=== PATIENT | female | born 1960 | race Caucasian/White ===

== ENCOUNTER 2016-11-04 14:05 | Inpatient (IN) | payer MEDICARE, MEDICAID ==
[~2016-11-04] VITALS: Ht 154.9 cm; Wt 117.5 kg
[~2016-11-04 14:05] MED LIST: 00186-0370-20 IH; ATROVENT I0.2 MG/1 M IH; CELEXA 20MG20 MG/TAB PO; CLARITIN 1010 MG/TAB PO; CLEOCIN HCL300 MG PO; DALIRESP500 MCG PO; DESYREL 100MG100 MG PO; FLONASE NASAL S16 GM NS; IMODIUM A-D2 MG PO; IPRATROPIUM BROM3 M1 IH; KLONOPIN 0.5MG0.5 MG PO; LASIX 20MG TABL20 MG PO; LEVAQUIN 750MG750 M1 PO; MOBIC15 MG PO; MUCINEX 60600 MG/TA1 PO; MUCUS RELIEF200 MG PO; NEURONTIN300 MG/CAP PO; OXYGEN; PERFOROMIS20 MCG/2 M IH; PREDNISONE1 MG PO; PREDNISONE10 MG PO; PREDNISONE20 MG PO; PRIL40 PO; PROMETHAZINE V473 M2 PO; PULMICORT R1 MG/2 ML IH; RT ADVAIR 228 DISKUS IH; TYLENOL 325MG325 MG PO; VENTOLIN0.09 MG IH; ZANTAC 150MG T150 MG PO; ZITHROMAX 250M250 MG PO; ZITHROMAX500 M2 PO
[2016-11-04 14:30] LABS: ARTERIAL BLD GAS TCO2 CT 33.2; ARTERIAL BLOOD GAS BASE EXCESS 5.7 (-2-2); ARTERIAL BLOOD GAS HCO3 31.6 meq/L (22-26); ARTERIAL BLOOD GAS PO2 74.3 mmHg (80-100); ARTERIAL BLOOD GAS PO2T 74.3 (80-100); OXYHEMOGLOBIN 93.2 %
[2016-11-04 14:31] LABS: ATS? YES
[2016-11-04 14:43] LABS: MEAN CELL VOLUME 97 fl (80.0-100.0); MEAN CORPUSCULAR HGB CONC 32 g/dl (33.0-37.0); MEAN PLATELET VOLUME 8.3 fl (7.4-10.4); PLATELET COUNT 227 K/mm3 (130-400); RED BLOOD COUNT 3.32 M/mm3 (4.10-5.30); REDCELL DISTRIBUTION WIDTH-CV 14.7 % (11.5-14.5); WHITE BLOOD COUNT 14.6 K/mm3 (4.8-10.8)
[2016-11-04 14:44] LABS: HEMATOCRIT 32.1 % (37.0-47.0); HEMOGLOBIN 10.2 g/dl (12.5-16.0); MEAN CORPUSCULAR HEMOGLOBIN 31 pg (27.0-31.0)
[2016-11-04 14:45] LABS: ADD PATHOLOGY DIFF REVIEW NO
[2016-11-04 14:58] LABS: BAND 49 % (0-10); NEUTROPHILS 31 % (42.0-75.2); PLATELET ESTIMATE NORMAL (NORMAL); TOTAL CELLS COUNTED 100
[2016-11-04 15:00] LABS: ADJUSTED CALCIUM 9.3 mg/dL (8.4-10.2); ALBUMIN 3.1 gm/dL (3.5-5.0); BILIRUBIN,TOTAL 0.8 mg/dL (0.0-1.0); CALCIUM 8.6 mg/dL (8.4-10.2); CREATININE, serum 0.86 mg/dL (0.52-1.25); POTASSIUM 3.8 mmol/L (3.4-5.0)
[2016-11-04 15:10] LABS: TROPONIN-I 0.086 ng/mL (0.000-0.034)
[2016-11-04 15:21] LABS: C-REACTIVE PROTEIN 16.5 mg/dL (0.0-0.9)
[2016-11-04] MEDS ORDERED: KLOR-CON M2020 MEQ PO (15:22)
[2016-11-04] MEDS ORDERED: SINGULAIR 110 MG/TAB PO (15:25)
[2016-11-04] MEDS ORDERED: ZITHROMAX 250M250 MG PO (15:26)
[2016-11-04 18:42] VITALS: BP 93/58; PULSE 116; TEMP 99.3
[2016-11-04 19:30] VITALS: BP 98/51; PULSE 110; TEMP 99.2
[2016-11-04 23:08] VITALS: BP 87/53; PULSE 93; TEMP 98
[2016-11-04 23:51] VITALS: BP 92/42; PULSE 92
[2016-11-05 03:02] VITALS: BP 97/50; PULSE 88; TEMP 97.8
[2016-11-05 07:24] LABS: MEAN CELL VOLUME 100 fl (80.0-100.0); MEAN CORPUSCULAR HGB CONC 31 g/dl (33.0-37.0); MEAN PLATELET VOLUME 8.8 fl (7.4-10.4); PLATELET COUNT 207 K/mm3 (130-400); RED BLOOD COUNT 2.99 M/mm3 (4.10-5.30); REDCELL DISTRIBUTION WIDTH-CV 14.5 % (11.5-14.5)
[2016-11-05 07:28] LABS: HEMATOCRIT 29.8 % (37.0-47.0); HEMOGLOBIN 9.2 g/dl (12.5-16.0); MEAN CORPUSCULAR HEMOGLOBIN 31 pg (27.0-31.0)
[2016-11-05 07:29] LABS: ADD PATHOLOGY DIFF REVIEW NO
[2016-11-05 07:33] LABS: CALCIUM 8.3 mg/dL (8.4-10.2); CREATININE, serum 0.77 mg/dL (0.52-1.25); POTASSIUM 3.9 mmol/L (3.4-5.0)
[2016-11-05 07:39] VITALS: BP 93/50; PULSE 89; TEMP 98
[2016-11-05 07:41] LABS: TROPONIN-I 0.017 ng/mL (0.000-0.034)
[2016-11-05 07:59] LABS: BAND 42 % (0-10); NEUTROPHILS 46 % (42.0-75.2); PLATELET ESTIMATE NORMAL (NORMAL); TOTAL CELLS COUNTED 100
[2016-11-05 13:18] VITALS: BP 107/44; PULSE 101; TEMP 98.3
[2016-11-05 17:24] VITALS: BP 114/48; PULSE 101; TEMP 98.1
[2016-11-05 19:32] VITALS: BP 116/50; PULSE 100; TEMP 98.8
[2016-11-05 23:42] VITALS: BP 113/50; PULSE 96; TEMP 97.9
[2016-11-06] VITALS (8 sets, daily range): BP systolic 104–125; BP diastolic 41–58; PULSE 89–101; TEMP 93.4–98.5
[2016-11-06 06:51] LABS: MEAN CELL VOLUME 97 fl (80.0-100.0); MEAN CORPUSCULAR HGB CONC 31 g/dl (33.0-37.0); MEAN PLATELET VOLUME 8.7 fl (7.4-10.4); PLATELET COUNT 226 K/mm3 (130-400); RED BLOOD COUNT 3.01 M/mm3 (4.10-5.30); REDCELL DISTRIBUTION WIDTH-CV 14.5 % (11.5-14.5); WHITE BLOOD COUNT 16.1 K/mm3 (4.8-10.8)
[2016-11-06 06:57] LABS: INR 1.2 (0.8-3.0); PROTHROMBIN TIME 13.3 SECONDS (9.7-12.8)
[2016-11-06 07:03] LABS: ADJUSTED CALCIUM 9.3 mg/dL (8.4-10.2); ALBUMIN 2.9 gm/dL (3.5-5.0); BILIRUBIN,TOTAL 0.5 mg/dL (0.0-1.0); CALCIUM 8.4 mg/dL (8.4-10.2); CREATININE, serum 0.77 mg/dL (0.52-1.25); MAGNESIUM 2.2 mg/dL (1.6-2.3); PHOSPHOROUS 3.1 mg/dL (2.5-4.5); POTASSIUM 3.6 mmol/L (3.4-5.0)
[2016-11-06 07:07] LABS: HEMATOCRIT 29.3 % (37.0-47.0); HEMOGLOBIN 9.2 g/dl (12.5-16.0); MEAN CORPUSCULAR HEMOGLOBIN 31 pg (27.0-31.0)
[2016-11-06 07:08] LABS: ADD PATHOLOGY DIFF REVIEW NO
[2016-11-06 07:32] LABS: C-REACTIVE PROTEIN 22.8 mg/dL (0.0-0.9)
[2016-11-06 07:40] LABS: BAND 37 % (0-10); METAMYELOCYTE 1 % (0-0); NEUTROPHILS 59 % (42.0-75.2); PLATELET ESTIMATE NORMAL (NORMAL); TOTAL CELLS COUNTED 100
[2016-11-06 09:30] LABS: ERYTHROCYTE SEDIMENTATION RATE 87 mm/hr (0-30)
[2016-11-06 15:18] LABS: BRONCH WASH FLUID MONONUCLEAR 14 % (0-75); BRONCH WASH POLY - PMN 66 % (0-25)
[2016-11-07 04:59] VITALS: BP 132/68; PULSE 95; TEMP 97.6
[2016-11-07 07:56] VITALS: BP 128/53; PULSE 87; TEMP 97.8
[2016-11-07 11:31] VITALS: BP 122/57; PULSE 92; TEMP 97.8
[2016-11-07 16:00] VITALS: BP 115/43; PULSE 87; TEMP 98.2
[2016-11-07 19:37] VITALS: BP 112/60; PULSE 80; TEMP 98.2
[2016-11-07 23:31] VITALS: BP 106/62; PULSE 76; TEMP 98.4
[2016-11-08 03:58] VITALS: BP 121/64; PULSE 77; TEMP 97.5
[2016-11-08 08:03] VITALS: BP 139/71; PULSE 79; TEMP 97.7
[2016-11-08 11:35] LABS: MEAN CELL VOLUME 95 fl (80.0-100.0); MEAN CORPUSCULAR HGB CONC 33 g/dl (33.0-37.0); MEAN PLATELET VOLUME 8.6 fl (7.4-10.4); PLATELET COUNT 212 K/mm3 (130-400); RED BLOOD COUNT 3.25 M/mm3 (4.10-5.30); WHITE BLOOD COUNT 8.8 K/mm3 (4.8-10.8)
[2016-11-08 11:37] LABS: ADD PATHOLOGY DIFF REVIEW NO; HEMOGLOBIN 10.1 g/dl (12.5-16.0); MEAN CORPUSCULAR HEMOGLOBIN 31 pg (27.0-31.0)
[2016-11-08 11:45] LABS: CALCIUM 8.8 mg/dL (8.4-10.2); CREATININE, serum 0.7 mg/dL (0.52-1.25)
[2016-11-08 11:46] LABS: POTASSIUM 2.7 mmol/L (3.4-5.0)
[2016-11-08 11:53] LABS: BAND 7 % (0-10); NEUTROPHILS 77 % (42.0-75.2); PLATELET ESTIMATE NORMAL (NORMAL); TOTAL CELLS COUNTED 100
[2016-11-08 12:26] VITALS: BP 119/60; PULSE 83; TEMP 97.5
[2016-11-08 16:34] VITALS: BP 120/55; PULSE 84; TEMP 97.4
== END 2016-11-08 17:00 | disposition short-term general hospital (02) | DRG 871 ==
LOC: COL.ER 14:05 → MEDICAL 15:47
PROVIDERS: Family Medicine; Internal Medicine; Internal Medicine Pulmonary Disease; Nurse Practitioner Family
PROC: 0B968ZX Drainage of Right Lower Lobe Bronchus, Via Natural or Artificial Opening Endoscopic, Diagnostic (ICD-10-PCS; 2016-11-06)
PROC: 0B958ZX Drainage of Right Middle Lobe Bronchus, Via Natural or Artificial Opening Endoscopic, Diagnostic (ICD-10-PCS; principal; 2016-11-06 09:30)
DX: A41.9 Sepsis, unspecified organism (principal); J96.21 Acute and chronic respiratory failure with hypoxia; J18.9 Pneumonia, unspecified organism; Z68.42 Body mass index [BMI] 45.0-49.9, adult; I10 Essential (primary) hypertension; E66.01 Morbid (severe) obesity due to excess calories; G47.33 Obstructive sleep apnea (adult) (pediatric); Z85.41 Personal history of malignant neoplasm of cervix uteri; Z87.891 Personal history of nicotine dependence; F41.8 Other specified anxiety disorders
CPT/HCPCS: 99223-AI; 99232-AI; 99239; C1751; J0456; J0696; J1644; J1650; J1815; J1956; J2543; J2704; J2920; J2930; J3370; J7030; J7050

== ENCOUNTER 2017-07-05 14:10 | Emergency (ER) | payer MEDICARE, MEDICAID ==
[~2017-07-05] VITALS: Ht 152.4 cm; Wt 100.0 kg
[~2017-07-05 14:10] MED LIST changes: +KLOR-CON M2020 MEQ PO; +SINGULAIR 110 MG/TAB PO
[2017-07-05 14:15] VITALS: BP 108/56; TEMP 98.7
[2017-07-05] MEDS ORDERED: PERFOROMIS20 MCG/2 M IH (14:43)
[2017-07-05] MEDS ORDERED: PULMICORT0.5 MG/2 M IH (14:44)
[2017-07-05] MEDS ORDERED: ALBUTEROL0.83 MG/ML IH (14:45)
[2017-07-05] MEDS ORDERED: ATROVENT I0.2 MG/1 M IH (14:45)
[2017-07-05] MEDS ORDERED: ZOFRAN ODT4 MG PO (14:48)
[2017-07-05] MEDS ORDERED: MOBIC15 MG PO (14:48)
[2017-07-05] MEDS ORDERED: LEVAQUIN 750MG750 M1 PO (14:50)
[2017-07-05] MEDS ORDERED: LASIX 20MG TABL20 MG PO (14:50)
[2017-07-05] MEDS ORDERED: K-DUR20 MEQ PO (14:51)
[2017-07-05] MEDS ORDERED: KLONOPIN 0.5MG0.5 MG PO (14:51)
[2017-07-05] MEDS ORDERED: ZANTAC 150MG T150 MG PO (14:52)
[2017-07-05] MEDS ORDERED: CLARITIN 1010 MG/TAB PO (14:52)
[2017-07-05] MEDS ORDERED: DESYREL 100MG100 MG PO (14:53)
[2017-07-05] MEDS ORDERED: NORCO 325 MG-101 TAB PO (14:53)
[2017-07-05] MEDS ORDERED: SINGULAIR 110 MG/TAB PO (14:54)
[2017-07-05] MEDS ORDERED: PRIL40 PO (14:54)
[2017-07-05] MEDS ORDERED: COUMADIN 5MG5 MG/TAB PO (14:56)
[2017-07-05] MEDS ORDERED: DALIRESP500 MCG PO (14:57)
[2017-07-05] MEDS ORDERED: CELEXA 20MG20 MG/TAB PO (14:58)
[2017-07-05] MEDS ORDERED: MUCINEX 60600 MG/TA1 (14:59)
[2017-07-05 15:21] LABS: ARTERIAL BLD GAS O2 SATURATION 97.9 % (92-100); ARTERIAL BLD GAS TCO2 CT 28.9; ARTERIAL BLOOD GAS BASE EXCESS 3.2 (-2-2); ARTERIAL BLOOD GAS HCO3 27.6 meq/L (22-26); ARTERIAL BLOOD GAS PHT 7.44 C (7.35-7.45); ARTERIAL BLOOD GAS pH 7.44 (7.35-7.45)
[2017-07-05 15:22] LABS: ARTERIAL BLOOD GAS PO2 130.8 mmHg (80-100); ARTERIAL BLOOD GAS PO2T 130.8 (80-100); ATS? YES
[2017-07-05 15:34] LABS: BASO % 0.3 % (0.0-2.0); EOS # 0.1 (0.0-0.7); EOS % 1.6 % (0-4.0); GRAN # 4.2 (1.4-6.5); GRAN % 62.4 % (42.2-75.2); LYMPH % 29.9 % (20.0-51.0); MEAN CELL VOLUME 92 fl (80.0-100.0); MEAN CORPUSCULAR HGB CONC 33 g/dl (33.0-37.0); MEAN PLATELET VOLUME 9.4 fl (7.4-10.4); MONO # 0.4 (0.1-0.6); MONO % 5.4 % (1.7-9.3); PLATELET COUNT 222 K/mm3 (130-400); RED BLOOD COUNT 3.69 M/mm3 (4.10-5.30); REDCELL DISTRIBUTION WIDTH-CV 13.7 % (11.5-14.5); WHITE BLOOD COUNT 6.7 K/mm3 (4.8-10.8)
[2017-07-05 15:38] LABS: HEMATOCRIT 33.8 % (37.0-47.0); HEMOGLOBIN 11.1 g/dl (12.5-16.0); MEAN CORPUSCULAR HEMOGLOBIN 30 pg (27.0-31.0)
[2017-07-05 15:45] LABS: ADJUSTED CALCIUM 9.7 mg/dL (8.4-10.2); ALBUMIN 3.8 gm/dL (3.5-5.0); BILIRUBIN,TOTAL 0.5 mg/dL (0.0-1.0); CALCIUM 9.5 mg/dL (8.4-10.2); CREATININE, serum 1.08 mg/dL (0.52-1.25)
[2017-07-05 16:30] VITALS: PULSE 69
== END 2017-07-05 16:30 | disposition home or self-care (01) ==
LOC: COL.ER 14:10
PROVIDERS: Family Medicine
DX: J44.9 Chronic obstructive pulmonary disease, unspecified (principal); Z87.891 Personal history of nicotine dependence; Z79.01 Long term (current) use of anticoagulants; Z99.81 Dependence on supplemental oxygen
CPT/HCPCS: J2930

== ENCOUNTER 2018-02-03 10:54 | Day surgery (SDC) | payer MEDICARE, MEDICAID ==
[~2018-02-03] VITALS: Ht 154.9 cm; Wt 99.7 kg
[~2018-02-03 10:54] MED LIST changes: +ALBUTEROL0.83 MG/ML IH; +COUMADIN 5MG5 MG/TAB PO; +K-DUR20 MEQ PO; +MUCUS RELIEF400 M1 PO; +NORCO 325 MG-101 TAB PO; +PULMICORT0.5 MG/2 M IH; +ZOFRAN ODT4 MG PO
[2018-02-03] MEDS ORDERED: IMODIUM 2MG CAPS2 MG PO (11:35)
[2018-02-03] MEDS ORDERED: LIDODERM 5% PATC1 EA TP (11:36)
[2018-02-03] MEDS ORDERED: VOLTAREN GEL 1%1 TU TP (11:37)
[2018-02-03] MEDS ORDERED: VENTOLIN0.09 MG IH (11:38)
[2018-02-03 11:49] VITALS: BP 107/78; PULSE 80; TEMP 97.9
[2018-02-03 14:00] VITALS: BP 123/61; PULSE 64; TEMP 97.8
[2018-02-03 14:15] VITALS: BP 110/62; PULSE 73
[2018-02-03 14:30] VITALS: BP 113/51; PULSE 73
[2018-02-03 17:08] VITALS: BP 123/60; PULSE 62
== END 2018-02-03 14:47 | disposition home or self-care (01) ==
LOC: SDCO 10:54
DX: D12.3 Benign neoplasm of transverse colon (principal); K63.5 Polyp of colon; K64.0 First degree hemorrhoids; Z88.2 Allergy status to sulfonamides; Z85.41 Personal history of malignant neoplasm of cervix uteri; Z85.828 Personal history of other malignant neoplasm of skin; J44.9 Chronic obstructive pulmonary disease, unspecified; G47.30 Sleep apnea, unspecified; K21.9 Gastro-esophageal reflux disease without esophagitis; M19.90 Unspecified osteoarthritis, unspecified site; I10 Essential (primary) hypertension; E66.01 Morbid (severe) obesity due to excess calories; F32.9 Major depressive disorder, single episode, unspecified; F41.9 Anxiety disorder, unspecified; M54.9 Dorsalgia, unspecified; N80.9 Endometriosis, unspecified; Z79.01 Long term (current) use of anticoagulants
CPT/HCPCS: OP; J2704; J7030

== ENCOUNTER 2018-10-16 06:46 | Day surgery (SDC) | payer MEDICARE, MEDICAID ==
[2018-10-16] VITALS (15 sets, daily range): BP systolic 102–133; BP diastolic 51–83; PULSE 54–74; TEMP 97.5–98.9
[~2018-10-16] VITALS: Ht 155 cm; Wt 102.0 kg
[~2018-10-16 06:46] MED LIST changes: +IMODIUM 2MG CAPS2 MG PO; +LIDODERM 5% PATC1 EA TP; +VOLTAREN GEL 1%1 TU TP
[2018-10-16 07:39] LABS: HEMOGLOBIN 11.6 g/dl (12.5-16.0); MEAN CELL VOLUME 94 fl (80.0-100.0); MEAN CORPUSCULAR HEMOGLOBIN 30 pg (27.0-31.0); MEAN CORPUSCULAR HGB CONC 32 g/dl (33.0-37.0); PLATELET COUNT 208 K/mm3 (130-400); RED BLOOD COUNT 3.86 M/mm3 (4.10-5.30); REDCELL DISTRIBUTION WIDTH-CV 13.6 % (11.5-14.5)
[2018-10-16 07:41] LABS: HEMATOCRIT 36.3 % (37.0-47.0)
[2018-10-16 07:47] LABS: INR 1.3 (0.8-3.0); PROTHROMBIN TIME 14.7 SECONDS (9.7-12.8)
[2018-10-16 07:53] LABS: CALCIUM 8.8 mg/dL (8.4-10.2); CREATININE, serum 0.97 mg/dL (0.52-1.25); POTASSIUM 4.2 mmol/L (3.4-5.0)
== END 2018-10-16 17:25 | disposition home or self-care (01) ==
LOC: COL.CAR 06:46
PROVIDERS: Internal Medicine Cardiovascular Disease
DX: I27.20 Pulmonary hypertension, unspecified (principal); J44.9 Chronic obstructive pulmonary disease, unspecified; Z87.891 Personal history of nicotine dependence; Z99.81 Dependence on supplemental oxygen; Z99.3 Dependence on wheelchair; Z79.01 Long term (current) use of anticoagulants; Z79.899 Other long term (current) drug therapy; G89.29 Other chronic pain; K21.9 Gastro-esophageal reflux disease without esophagitis; G47.33 Obstructive sleep apnea (adult) (pediatric); C80.1 Malignant (primary) neoplasm, unspecified
CPT/HCPCS: J1644; J2250; J2704; J7120; Q9967